=== PATIENT | female | born 1995 | race African-American/Black ===

== ENCOUNTER 2018-08-17 12:09 | Day surgery (SDC) | payer OTHER | END 2018-08-17 21:30 | disposition home or self-care (01) | LOC: JASU-SURG 21:30 → J8W 20:36 ==

== ENCOUNTER 2018-11-17 11:56 | Inpatient (IN) | payer OTHER ==
[2018-11-17 12:07] VITALS: BMI 38.0
--- NOTE | 2018-11-17 12:11 | PDOC ---
History of Present Illness - General Chief Complaint: Syncope/Near Syncope Stated Complaint: Syncope/Near Syncope Time Seen by Provider: 11/17/18 12:08 Past History - Past Medical History Allergies/Adverse Reactions: Allergies Allergy/AdvReac Type Severity Reaction Status Date / Time house dust AdvReac Intermediate Hives Verified 11/17/18 12:43 latex AdvReac Intermediate Hives Verified 11/17/18 12:43 Home Medications: Ambulatory Orders NK [No Known Home Medication] 11/17/18 Anemia: No Asthma: No Cancer: No Cardiac Disorders: No CVA: No COPD: No CHF: No Dementia: No Diabetes: No GI Disorders: No Disorders: No HTN: No Hypercholesterolemia: No Liver Disease: No Seizures: No Thyroid Disease: No - Surgical History Abdominal Surgery: No Appendectomy: No Cardiac Surgery: No Cholecystectomy: No GI Surgery: Yes (gastric sleeve) Lung Surgery: No Neurologic Surgery: No Orthopedic Surgery: No - Suicide/Smoking/Psychosocial Hx Smoking History: Never smoked Have you smoked in the past 12 months: No Information on smoking cessation initiated: No Hx Alcohol Use: No Drug/Substance Use Hx: No Substance Use Type: None Hx Substance Use Treatment: No *Physical Exam - Vital Signs Last Vital Signs Temp Pulse Resp BP Pulse Ox 98.6 F 97 H 18 119/82 100 11/17/18 12:03 11/17/18 12:03 11/17/18 12:03 11/17/18 12:03 11/17/18 12:03 ED Treatment Course - LABORATORY CBC & Chemistry Diagram: 11/17/18 12:27 11/17/18 12:27 - ADDITIONAL ORDERS Additional order review: Laboratory Results 11/17/18 11:59 POC Glucometer 65 11/17/18 11:59 POC Glucometer 65 Medical Decision Making - Medical Decision Making HPI: 23yo F with PMH of obesity with recent bariatric surgery presenting after syncopal episode. Patient states she was in shower this morning when she felt like she might pass out as she felt very lightheaded and weak. Patient was in the waiting room when she had a witnessed syncopal episode. No jerking/shaking motion, no urinary/stool incontinence, no tongue/lip biting. Patient was moved to the main ER for further evaluation. Patient admits she has had poor po intake since the surgery, only consuming about 20 oz of liquid per day for the past couple days. Patient reports nausea and vomiting which she associates with the surgery She states she very easily gets dehydrated. No fevers or chills. ROS: Constitutional: no fever, no chills HEENT: no throat pain, no dysphagia Cardiovascular: no chest pain, no palpitations Respiratory: no cough, no shortness of breath Gastrointestinal: +nausea, +vomiting Genitourinary: no dysuria, no hematuria Musculoskeletal: no myalgia, no arthralgia Skin: no rash, no itching Neurologic: no headache, +weakness PE: General: Awake, alert, and fully oriented, laying in position Head: No signs of trauma Eyes: EOMI, sclera anicteric ENT: Dry mucus membranes Neck: Normal ROM, supple Lungs: Lungs clear, Normal breath sounds Cardio: Regular rhythm, S1 and S2 present Abdomen: Soft, nontender. No guarding, no rebound, no masses. Surgical incisions are clean, dry, intact Extremities: Normal range of motion, Distal pulses present SKIN: Warm, Dry, normal turgor Neurologic: Cranial nerves II through XII grossly intact. Normal speech ED Courses/MDM: DDX including but not limited to vasovagal syncope, cardiogenic syncope, metabolic syncope, neurogenic syncope, postural syncope, , intoxication , seizure 11/17/18 12:11 CBC WBC 4.4 K/mm3 (4.0-10.0) 11/17/18 12:27 RBC 4.72 M/mm3 (3.60-5.2) 11/17/18 12:27 Hgb 14.3 GM/dL (10.7-15.3) 11/17/18 12:27 Hct 42.1 % (32.4-45.2) 11/17/18 12:27 MCV 89.3 fl (80-96) 11/17/18 12:27 MCH 30.3 pg (25.7-33.7) 11/17/18 12:27 MCHC 33.9 g/dl (32.0-36.0) 11/17/18 12:27 RDW 14.0 % (11.6-15.6) 11/17/18 12:27 Plt Count 206 K/MM3 (134-434) 11/17/18 12:27 MPV 11.3 fl (7.5-11.1) H 11/17/18 12:27 Absolute Neuts (auto) 2.0 K/mm3 (1.5-8.0) 11/17/18 12:27 Neutrophils % 45.7 % (42.8-82.8) 11/17/18 12:27 Lymphocytes % 39.4 % (8-40) 11/17/18 12:27 Monocytes % 13.1 % (3.8-10.2) H 11/17/18 12:27 Eosinophils % 0.8 % (0-4.5) 11/17/18 12:27 Basophils % 1.0 % (0-2.0) 11/17/18 12:27 Nucleated RBC % 0 % (0-0) 11/17/18 12:27 No leukocytosis CMP Sodium 137 mmol/L (136-145) 11/17/18 12:27 Potassium 4.1 mmol/L (3.5-5.1) 11/17/18 12:27 Chloride 104 mmol/L (98-107) 11/17/18 12:27 Carbon Dioxide 16 mmol/L (21-32) L 11/17/18 12:27 Anion Gap 17 MMOL/L (8-16) H 11/17/18 12:27 BUN 9.5 mg/dL (7-18) 11/17/18 12:27 Creatinine 0.8 mg/dL (0.55-1.3) 11/17/18 12:27 Est GFR (CKD-EPI)AfAm 121.29 11/17/18 12:27 Est GFR (CKD-EPI)NonAf 104.65 11/17/18 12:27 POC Glucometer 65 UNITS (80-120) 11/17/18 11:59 Random Glucose 61 mg/dL (74-106) L 11/17/18 12:27 Lactic Acid 0.9 mmol/L (0.4-2.0) 11/17/18 13:52 Calcium 9.5 mg/dL (8.5-10.1) 11/17/18 12:27 Total Bilirubin 0.5 mg/dL (0.2-1) 11/17/18 12:27 AST 22 U/L (15-37) 11/17/18 12:27 ALT 20 U/L (13-61) 11/17/18 12:27 Alkaline Phosphatase 58 U/L (45-117) 11/17/18 12:27 Troponin I < 0.02 ng/ml (0.00-0.05) 11/17/18 12:27 Total Protein 8.2 g/dl (6.4-8.2) 11/17/18 12:27 Albumin 4.1 g/dl (3.4-5.0) 11/17/18 12:27 Electrolytes unremarkable Tpn undetectable Lactate normal VBG indicating metabolic acidosis, likely due to starvation ketosis Total of 1L NS, and 1L D5-NS given so far US negative for DVT Discussed case with Dr. Nunez, infection control specialist for patient's bariatric surgeon, at [facility], We don't need to image unless she has fever or pain hydration is advised for fluid resuscitatation Sometimes 4L of fluid, banana bag will help in order to break the cycle of being able to tolerate po Any stool softener can be helpful for patient's constipation, but often the patient is consuming so little she is not moving her bowels 11/17/18 15:14 Patient feeling better after receiving fluids, however, there is concern for the metabolic derangements present on blood work. Will require admission for dehydration and poor po intake. Discussed case with Dr. Calvert who accepted patient for med/surg admission under herself 11/17/18 15:57 Another 1L D5-NS ordered *DC/Admit/Observation/Transfer Diagnosis at time of Disposition: Dehydration, Metabolic acidemia - Discharge Dispostion Condition at time of disposition: Guarded Decision to Admit order: Yes - Referrals - Patient Instructions - Post Discharge Activity
[2018-11-17] MEDS ORDERED: SODIUM CHLORIDE 1,000 ML IV STA (12:21)
[2018-11-17 12:36] LABS: EOS % 0.8 % (0-4.5); HEMATOCRIT 42.1 % (32.4-45.2); HEMOGLOBIN 14.3 GM/dL (10.7-15.3); LYMPH % 39.4 % (8-40); MCH 30.3 pg (25.7-33.7); MCHC 33.9 g/dl (32.0-36.0); MEAN CELL VOLUME 89.3 fl (80-96); MEAN PLT VOLUME 11.3 fl (7.5-11.1); MONO % 13.1 % (3.8-10.2); NEUT % 45.7 % (42.8-82.8); PLATELET COUNT 206 K/MM3 (134-434); RBC 4.72 M/mm3 (3.60-5.2); WHITE BLOOD COUNT 4.4 K/mm3 (4.0-10.0)
[2018-11-17 12:49] LABS: INR 1.39 (0.83-1.09); PROTHROMBIN TIME (PATIENT) 16.5 SEC (9.7-13.0)
[2018-11-17] MEDS ORDERED: ONDANSETRON 4 MG/2 ML VIAL IVPUSH ONE (13:08)
[2018-11-17 13:09] LABS: HYALINE CASTS 40 /lpf (0-8); PH,URINE 5.5 (5.0-8.0); URINE APPEARANCE CLOUDY; URINE BILIRUBIN NEGATIVE (NEGATIVE); URINE COLOR YELLOW; URINE GLUCOSE (UA) NEGATIVE (NEGATIVE); URINE KETONE 4+ (NEGATIVE); URINE LEUK ESTERASE NEGATIVE (NEGATIVE); URINE NITRITE NEGATIVE (NEGATIVE); URINE PROTEIN 1+ (NEGATIVE); URINE RBC 5 /hpf (0-4); URINE WBC 5 /hpf (0-5)
[2018-11-17 13:24] LABS: ALBUMIN 4.1 g/dl (3.4-5.0); ALK PHOS 58 U/L (45-117); ANION GAP 17 MMOL/L (8-16); BILIRUBIN,TOTAL 0.5 mg/dL (0.2-1); BLOOD UREA NITROGEN 9.5 mg/dL (7-18); CALCIUM 9.5 mg/dL (8.5-10.1); CHLORIDE 104 mmol/L (98-107); CO2 16 mmol/L (21-32); CREATININE 0.8 mg/dL (0.55-1.3); GLUCOSE,RANDOM 61 mg/dL (74-106); POTASSIUM 4.1 mmol/L (3.5-5.1); SGOT/AST 22 U/L (15-37); SGPT/ALT 20 U/L (13-61); SODIUM 137 mmol/L (136-145); TOT PROT 8.2 g/dl (6.4-8.2)
[2018-11-17] MEDS ORDERED: ONDANSETRON 4 MG/2 ML VIAL ONE (13:25)
[2018-11-17] MEDS ORDERED: DEXTROSE 5%-NORMAL SALINE 1,000 ML IV ONE ×2 (13:27→17:00)
[2018-11-17 13:39] LABS: ACETONE SERUM NEGATIVE (NEGATIVE)
--- NOTE | 2018-11-17 13:56 | PDOC ---
Documentation entered by Fadia Costa SCRIBE, acting as scribe for Geovanni Vann MD. Geovanni Vann MD: This documentation has been prepared by the scribe, Fadia Costa SCRIBE, under my direction and personally reviewed by me in its entirety. I confirm that the documentation accurately reflects all work, treatment, procedures, and medical decision making performed by me. Attending Attestation - Resident Resident Name: RosemaryAnne - ED Attending Attestation I have performed the following: I have examined & evaluated the patient, The case was reviewed & discussed with the resident, I agree w/resident's findings & plan, Exceptions are as noted - HPI HPI: 11/17/18 13:26 The patient is a 23-year-old female with a past medical history significant for obesity s/p bariatric surgery (November 09) presents to the emergency department s /p a syncopal episode, nausea and decreased PO intake. The patient reports since the surgery shes been having decreased PO intake to 20 ounces of fluids/ day, nausea, and vomiting. The patient reports earlier today she had a syncopal episode. The patient reports talking to the bariatric team, who referred the patient to follow up at the ER. The patient was waiting at the ER waiting room, when she had another syncopal episode. The patient reports associated symptoms of burning chest pain, no bowel movement since the surgery, and 2 days of unilateral right posterior knee pain. The patient reports having a syncopal episode mid-October. Denies fever, chills, cough, hemoptysis, shortness of breath, abdominal pain. LMP: October 31. Allergies: house dust, latex. NKDA Surgeon: Dr. Colin, [facility] - Physicial Exam PE: 11/17/18 13:52 GENERAL: The patient is awake, alert, and fully oriented, Nontoxic - in no acute distress. HEAD: Normocephalic, atraumatic. EYES: extraocular movements intact, sclera anicteric, conjunctiva clear. ENT: Normal voice, dry mucous membranes. NECK: Normal range of motion, supple LUNGS: Breath sounds equal, clear to auscultation bilaterally. No wheezes, no rhonchi, no rales. HEART: slightly tachcyardic, Regular rhythm, normal S1 and S2 without murmur, rub or gallop. ABDOMEN: Soft, nontender, No guarding, no rebound. No CVA tenderness EXTREMITIES: Normal range of motion, no edema. No edema, neg homans sign NEUROLOGICAL: No facial assymetry, Normal speech, moving all 4 extremities spontanoeusly and symmetricaly PSYCH: Normal mood, normal affect. SKIN: Warm, Dry, normal turgor, - Medical Decision Making 11/17/18 12:57 23y F hx of obesity sp bariatric surgery 1 week ago present with poor po intake and sycnope episode, and pt syncopized in the ED during registration. pt has had poor PO intake ~20oz of fluid/.day due to nausea/vomiting. Endorses chest burning discomfort since her procecure (that she attributes to being intubated) . denies any fever/chills, abd pain, hemoptysis, sob, vance. pt had L sided knee pain that was atraumatic ddx - suspect dehydration/metabolic derangement. consider PE, however no respiratory complaints, pt with L leg pain - will obtain US to r/o dvt will hydrate ekg to screen fora rtymia labs to screen for anmeia,metabolic derangeent, chuy, hcg 11/17/18 13:55 pts labs reviewed noted for metabolic acidosis, +ketones will ck serum acetones and lactic acid to nima the acidosis - but i suspect this is due to starvation ketosis as she hsa been only tolerating limited PO intake (primary water) with very little caloric nutrion 11/17/18 15:[address] Colin Case discussed with Dr. Maricarmen Nunez 11/17/18 15:47 Patient's PCP is Dr. Dania Hunter, Dr. Calvert admits Dr. Hunter's patients Call placed to Dr. Calvert for admission, waiting for a call back.
[2018-11-17 14:37] LABS: VENOUS PC02 27.7 mmHg (41-51); VENOUS PH 7.28 (7.31-7.41); VENOUS PO2 41.7 mmHg (30-40)
[2018-11-17] MEDS ORDERED: ACETAMINOPHEN 325 MG TABLET (FP) PO PRN (20:09)
[2018-11-17] MEDS: HEPARIN NA (PORCINE) 5,000 UNITS/ML 1ML VIAL SQ SCH (21:02)
--- NOTE | 2018-11-17 21:48 | HP ---
Admitting History and Physical - Admission History of Present Illness: Pt is a 23-year-old female with a past medical history significant for migraine GORDON's, morbid obesity s/p bariatric surgery (November 09) presents to the emergency department s/p a syncopal episode, nausea and decreased PO intake. The patient reports since the surgery shes been having decreased PO intake to 20 ounces of fluids/day, nausea, and vomiting. The patient reports earlier today she had a syncopal episode. The patient reports talking to the bariatric team, who referred the patient to follow up at the ER. The patient was waiting at the ER waiting room, when she had another syncopal episode. The patient reports associated symptoms of burning chest pain, no bowel movement since the surgery, and 2 days of unilateral right posterior knee pain. The patient reports having a syncopal episode mid-October. Denies fever, chills, cough, hemoptysis, shortness of breath, abdominal pain. - Past Medical History [employer]: Yes: Migraine, Syncope ...LMP: 09/07/18 - Past Surgical History Past Surgical History: Yes: Bariatric Surgery - Smoking History Smoking history: Never smoked Have you smoked in the past 12 months: No - Alcohol/Substance Use Hx Alcohol Use: No Home Medications - Allergies Allergies/Adverse Reactions: Allergies Allergy/AdvReac Type Severity Reaction Status Date / Time house dust AdvReac Intermediate Hives Verified 11/17/18 12:43 latex AdvReac Intermediate Hives Verified 11/17/18 12:43 - Home Medications Home Medications: Ambulatory Orders levoFLOXacin [Levaquin -] 500 mg PO DAILY #5 tablet 11/19/18 Family Disease History - Family Disease History Family History: Unremarkable Review of Systems - Review of Systems Constitutional: reports: Loss of Appetite, Weakness Eyes: reports: No Symptoms HENT: reports: No Symptoms Neck: reports: No Symptoms Cardiovascular: reports: No Symptoms Respiratory: reports: No Symptoms Gastrointestinal: reports: No Symptoms Genitourinary: reports: No Symptoms Physical Examination Vital Signs: Vital Signs Temperature 97.5 F L 11/17/18 17:58 Pulse Rate 76 11/17/18 17:58 Respiratory Rate 18 11/17/18 17:58 Blood Pressure 132/65 11/17/18 17:58 O2 Sat by Pulse Oximetry (%) 98 11/17/18 17:58 Constitutional: Yes: Well Nourished, Obese Eyes: Yes: WNL HENT: Yes: WNL Neck: Yes: WNL, Supple Cardiovascular: Yes: WNL, Regular Rate and Rhythm Respiratory: Yes: WNL, Regular, CTA Bilaterally Gastrointestinal: Yes: WNL, Normal Bowel Sounds, Soft, Abdomen, Obese Musculoskeletal: Yes: WNL Extremities: Yes: WNL Edema: No Neurological: Yes: WNL, Alert, Oriented ...Motor Strength: WNL Labs: CBC, BMP 11/17/18 12:27 11/17/18 12:27 Problem List - Problems (1) Syncope Assessment/Plan: ?Due to vasovagal episode due to dehydration/decreased PO intake Monitor electrolytes Cont IVF Cardio/neuro consults Check ct scan head Code(s): R55 - SYNCOPE AND COLLAPSE (2) Migraine headache Code(s): G43.909 - MIGRAINE, UNSP, NOT INTRACTABLE, WITHOUT STATUS MIGRAINOSUS (3) Morbid obesity Code(s): E66.01 - MORBID (SEVERE) OBESITY DUE TO EXCESS CALORIES (4) Elevated CPK Assessment/Plan: Due to ?rhabdo Cont IVF Cont to trend CPK Code(s): R74.8 - ABNORMAL LEVELS OF OTHER SERUM ENZYMES
[2018-11-17] MEDS: DEXTROSE 5%-0.45% SALINE 1,000 ML IV SCH (23:09)
[2018-11-18 07:20] LABS: BASO % 0.6 % (0-2.0); EOS % 2.5 % (0-4.5); HEMATOCRIT 34.9 % (32.4-45.2); HEMOGLOBIN 12.2 GM/dL (10.7-15.3); LYMPH % 44.6 % (8-40); MCH 30.5 pg (25.7-33.7); MCHC 34.8 g/dl (32.0-36.0); MEAN CELL VOLUME 87.7 fl (80-96); MEAN PLT VOLUME 11.8 fl (7.5-11.1); MONO % 17.1 % (3.8-10.2); NEUT % 35.2 % (42.8-82.8); PLATELET COUNT 172 K/MM3 (134-434); RBC 3.98 M/mm3 (3.60-5.2); RDW 13.7 % (11.6-15.6)
[2018-11-18 07:57] LABS: ALBUMIN 3.2 g/dl (3.4-5.0); BLOOD UREA NITROGEN 6.3 mg/dL (7-18); CALCIUM 8.3 mg/dL (8.5-10.1); CREATININE 0.6 mg/dL (0.55-1.3); POTASSIUM 3.4 mmol/L (3.5-5.1); TOT PROT 6.2 g/dl (6.4-8.2)
--- NOTE | 2018-11-18 11:13 | CONSULT ---
Consult - text type - Consultation Consultation Note: Cardiology (Dr. Latif covering Dr. Almanza) Reason for Consult: Syncope 23 yo AA female H/o Obesity s/p bariatric surgery on November 09 Over past 2-3 days had not been feeling well with dizziness and overall general weakness Had not been eating or drinking as directed. Did take about 22 Oz water only per day. Came to the ED with these complaints and felt dizzy and "passed out" Thinks she was out for a few minutes. Prodrome of awareness that she was going to pass out, weak in her legs No chest pain, palpitations Was aware of her surroundings upon arousal Labs in ED noted for Gluc 61 No prior h/o DM, HTN, HPL or CAD Had full cardiac clearance prior to Bariatric surgery PMHx, Soc Hx, Allergies reviewed PE: VS BP 102/65mmHg, P 68/min 100% RA No distress Normal carotid upstroke No bruits Regular rate, no murmurs Lungs are clear bilaterally, no edema EC11/17/2018 at 11:51 sinus tach at 101 without prior infarct or ischemic changes Trop neg x 2 Hgb 14.3 K 3.4 IMP: Syncope in the setting of volume depletion Unlikley cardiac in etiology Would encourage PO intake (within the guidelines of her recent bariatric surgery limitations) and IV hydration Follow BP
[2018-11-18] MEDS: HEPARIN NA (PORCINE) 5,000 UNITS/ML 1ML VIAL SQ SCH ×2 (11:37→21:57)
[2018-11-18] MEDS ORDERED: POTASSIUM CHLORIDE TABS 20 MEQ TABLET.ER (FP) PO ONE (12:45)
[2018-11-18] MEDS ORDERED: DEXTROSE 5%-0.45% SALINE 1,000 ML IV SCH (12:45)
[2018-11-18] MEDS: DEXTROSE 5%-0.45% SALINE 1,000 ML IV SCH (16:16)
[2018-11-18] MEDS ORDERED: DOCUSATE SODIUM 100 MG CAPSULE (FP) PO SCH (22:00)
--- NOTE | 2018-11-18 23:10 | PN ---
Progress Note, Physician History of Present Illness: Pt feeling dizzy - Current Medication List Current Medications: Active Medications Acetaminophen (Tylenol -) 650 mg PO Q4H PRN PRN Reason: PAIN Last Admin: 11/17/18 20:40 Dose: 650 mg Docusate Sodium (Colace -) 200 mg PO TID [facility] Last Admin: 11/18/18 21:57 Dose: 200 mg Heparin Sodium (Porcine) (Heparin -) 5,000 unit SQ BID [facility] Last Admin: 11/18/18 21:57 Dose: 5,000 unit Dextrose/Sodium Chloride (D5-1/2ns -) 1,000 mls @ 75 mls/hr IV ASDIR [facility] Last Admin: 11/18/18 16:16 Dose: 75 mls/hr Dextrose/Sodium Chloride (D5-1/2ns -) 1,000 mls @ 100 mls/hr IV ASDIR [facility] Last Admin: 11/18/18 13:11 Dose: 100 mls/hr - Objective Vital Signs: Vital Signs Temperature 98.5 F 11/18/18 14:10 Pulse Rate 96 H 11/18/18 14:10 Respiratory Rate 20 11/18/18 14:10 Blood Pressure 91/58 L 11/18/18 14:10 O2 Sat by Pulse Oximetry (%) 100 11/18/18 09:00 Constitutional: Yes: Well Nourished, Obese HENT: Yes: WNL Neck: Yes: WNL, Supple Cardiovascular: Yes: WNL, Regular Rate and Rhythm Respiratory: Yes: WNL, Regular, CTA Bilaterally Gastrointestinal: Yes: WNL, Normal Bowel Sounds, Soft Labs: CBC, BMP 11/18/18 05:25 11/18/18 05:25 INR, PTT INR 1.39 (0.83-1.09) H 11/17/18 12:27 Problem List - Problems (1) Syncope Assessment/Plan: ?Due to vasovagal episode due to dehydration/decreased PO intake Monitor electrolytes Cont IVF CT scan head was normal Code(s): R55 - SYNCOPE AND COLLAPSE (2) Elevated CPK Assessment/Plan: Due to ?rhabdo Cont IVF Cont to trend CPK Code(s): R74.8 - ABNORMAL LEVELS OF OTHER SERUM ENZYMES (3) Migraine headache Code(s): G43.909 - MIGRAINE, UNSP, NOT INTRACTABLE, WITHOUT STATUS MIGRAINOSUS (4) Morbid obesity Code(s): E66.01 - MORBID (SEVERE) OBESITY DUE TO EXCESS CALORIES
[2018-11-18] MEDS: SULFAMETHOXAZOLE/TRIMETHOPRIM 800MG/160MG D.S. TABLET PO SCH (23:55)
[2018-11-19 07:09] VITALS: TEMP 98.2
--- NOTE | 2018-11-19 09:13 | EKG ---
Test Reason : Blood Pressure : / mmHG Vent. Rate : 101 BPM Atrial Rate : 101 BPM P-R Int : 134 ms QRS Dur : 080 ms QT Int : 324 ms P-R-T Axes : 035 062 037 degrees QTc Int : 420 ms POOR DATA QUALITY, INTERPRETATION MAY BE ADVERSELY AFFECTED SINUS TACHYCARDIA OTHERWISE NORMAL ECG NO PREVIOUS ECGS AVAILABLE Confirmed by JANE CUMMINGS MD ([id number]) on 11/19/2018 9:12:29 AM Referred By: Confirmed By:JANE CUMMINGS MD
[2018-11-19 09:55] LABS: BASO % 0.6 % (0-2.0); EOS % 1.7 % (0-4.5); HEMATOCRIT 39.4 % (32.4-45.2); HEMOGLOBIN 13.5 GM/dL (10.7-15.3); LYMPH % 47.5 % (8-40); MCH 30.2 pg (25.7-33.7); MCHC 34.2 g/dl (32.0-36.0); MEAN CELL VOLUME 88.2 fl (80-96); MEAN PLT VOLUME 10.9 fl (7.5-11.1); MONO % 14.4 % (3.8-10.2); NEUT % 35.8 % (42.8-82.8); PLATELET COUNT 196 K/MM3 (134-434); RBC 4.46 M/mm3 (3.60-5.2); RDW 13.8 % (11.6-15.6); WHITE BLOOD COUNT 3.8 K/mm3 (4.0-10.0)
[2018-11-19] MEDS: HEPARIN NA (PORCINE) 5,000 UNITS/ML 1ML VIAL SQ SCH (10:06)
[2018-11-19] MEDS: SULFAMETHOXAZOLE/TRIMETHOPRIM 800MG/160MG D.S. TABLET PO SCH (10:06)
[2018-11-19 10:24] LABS: ALBUMIN 3.5 g/dl (3.4-5.0); BILIRUBIN,TOTAL 0.3 mg/dL (0.2-1); BLOOD UREA NITROGEN 4.2 mg/dL (7-18); CREATININE 0.7 mg/dL (0.55-1.3); POTASSIUM 3.5 mmol/L (3.5-5.1)
[2018-11-19 14:59] VITALS: BP 138/91; PULSE 87
== END 2018-11-19 16:00 | disposition home or self-care (01) | DRG 312 ==
LOC: SUPCPDRO 11:56 → JER 11:56 → JERBED 15:58 → J7W 16:58
PROVIDERS: ADMIT Internal Medicine; ATTEND Internal Medicine
DX: R55 Syncope and collapse (principal); E87.2 Acidosis; E86.0 Dehydration; G43.809 Other migraine, not intractable, without status migrainosus; R74.8 Abnormal levels of other serum enzymes; R00.0 Tachycardia, unspecified; E66.9 Obesity, unspecified; Z68.38 Body mass index [BMI] 38.0-38.9, adult; Z98.84 Bariatric surgery status
CPT/HCPCS: 36415; 70450-TC; 80053; 81003; 82009; 82550; 82553; 82803; 82962; 83605; 84484; 84703; 85025; 85610; 87086; 87186; 93005; 93010; 93971-TC; 99285-25; J1644; J7030

== ENCOUNTER 2019-01-05 12:06 | Emergency (ER) | payer OTHER ==
--- NOTE | 2019-01-05 12:29 | PDOC ---
Rapid Medical Evaluation Medical Evaluation: Allergies Allergy/AdvReac Type Severity Reaction Status Date / Time house dust AdvReac Intermediate Hives Verified 11/17/18 12:43 latex AdvReac Intermediate Hives Verified 11/17/18 12:43 I have performed a brief in-person evaluation of this patient. The patient presents with a chief complaint of: hx migraine GORDON's, morbid obesity s/p bariatric surgery (November 09) sent by PCP due to RUQ pain for possible gallstones; NBNB emesis x 2 weeks; sxs going on since mid November Pertinent physical exam findings: In NAD, +RUQ tenderness, no CVA tenderness I have ordered the following: Labs, IVF, zofran, abd US The patient will proceed to the ED for further evaluation. 01/05/19 12:26
[2019-01-05] MEDS ORDERED: SODIUM CHLORIDE 1,000 ML IV STA (12:30)
[2019-01-05] MEDS ORDERED: ONDANSETRON 4 MG/2 ML VIAL IVPUSH ONE (12:30)
[2019-01-05 12:32] VITALS: BMI 32.4
[2019-01-05] MEDS ORDERED: KETOROLAC TROMETHAMINE 30 MG/1 ML VIAL IVPUSH ONE (13:38)
--- NOTE | 2019-01-05 13:38 | PDOC ---
History of Present Illness - General Chief Complaint: Pain Stated Complaint: SENT BY PCP Time Seen by Provider: 01/05/19 12:26 History Source: Patient - History of Present Illness Timing/Duration: reports: getting worse Quality: reports: severe Abdominal Pain Onset Location: reports: RUQ Past History - Past Medical History Allergies/Adverse Reactions: Allergies Allergy/AdvReac Type Severity Reaction Status Date / Time house dust AdvReac Intermediate Hives Verified 01/05/19 12:27 latex AdvReac Intermediate Hives Verified 01/05/19 12:27 Home Medications: Ambulatory Orders Acetaminophen 1,000 mg PO Q6H #30 tablet 01/05/19 Ondansetron HCl [Zofran] 4 mg PO Q6H #30 tablet 01/05/19 Anemia: No Asthma: No Cancer: No Cardiac Disorders: No CVA: No COPD: No CHF: No Dementia: No Diabetes: No GI Disorders: No Disorders: No HTN: No Hypercholesterolemia: No Liver Disease: No Seizures: No Thyroid Disease: No - Surgical History Abdominal Surgery: No Appendectomy: No Cardiac Surgery: No Cholecystectomy: No GI Surgery: Yes (gastric sleeve) Lung Surgery: No Neurologic Surgery: No Orthopedic Surgery: No - Immunization History Immunization Up to Date: Yes - Suicide/Smoking/Psychosocial Hx Smoking History: Never smoked Have you smoked in the past 12 months: No Information on smoking cessation initiated: No Hx Alcohol Use: No Drug/Substance Use Hx: No Substance Use Type: None Hx Substance Use Treatment: No Review of Systems - Review of Systems Constitutional: No: Chills, Fever Respiratory: No: Shortness of Breath Cardiac (ROS): No: Chest Pain ABD/GI: Yes: Constipated, Nausea, Vomiting, Abdominal cramping. No: Blood Streaked Bowels, Diarrhea : No: Dysuria *Physical Exam - Vital Signs Last Vital Signs Temp Pulse Resp BP Pulse Ox 98.2 F 104 H 16 121/79 99 01/05/19 12:28 01/05/19 12:28 01/05/19 12:28 01/05/19 12:28 01/05/19 12:28 - Physical Exam General Appearance: Yes: Appropriately Dressed, Moderate Distress HEENT: positive: Normal Voice Neck: positive: Supple Respiratory/Chest: negative: Respiratory Distress Gastrointestinal/Abdominal: positive: Normal Bowel Sounds, Tender (sig ttp to RUQ), Soft. negative: Distended, Guarding, Rebound Musculoskeletal: negative: CVA Tenderness Integumentary: positive: Dry, Warm Neurologic: positive: Fully Oriented, Alert, Normal Mood/Affect ED Treatment Course - LABORATORY CBC & Chemistry Diagram: 01/05/19 14:15 01/05/19 14:15 Medical Decision Making - Medical Decision Making 01/05/19 13:34 23 yo F, s/p gastric sleeve 11/09/18 in [place], w/ intermittent n/v since, not able to hector po now including antiemetics given to her by her surgeon. States she progressed to solid food ~1 month ago and since then has been having RUQ pain after po intake. Of note pt was admitted to [facility] 12/04 for syncope deemed to be 2/2 dehydration per records. Pt was seen by her surgeon ~2 weeks ago and was told she needed an endoscopy and to be "checked for gallstones" but states no one contacted her to arrange procedures. Reports constipation as well. No BRBPR, melena, f/c see exam RUQ pain w/ n/v s/p bariatric surgery 11/09/18 at OSH S/p admission 12/04 for syncope 2/2 dehydration/volume depletion S/p surgery f/u 2 weeks ago and told need endoscopy but no procedure yet Unable to hector po and meds now Tachy to 104 but francisca very uncomfortable w/ mod ttp to RUQ -zofran -pain control -IVF -labs -US -?CT 01/05/19 14:07 Pt refusing IVF. States IV fluids make her gain weight and does not want it. I explained to pt that given her complaints and clinical evaluation, she m/l is dehydrated and need IVF hydration to prevent complications, i.e syncope, etc. Pt verbalized understanding and continue to refuse IVF. Appears to have capacity to make decisions 01/05/19 16:50 Labs only remarkably for Ket of 4+ on UA, m/l 2/2 dehydration. Pt informed of results but continue to decline IVF. States she feels sig better w/ IV meds and was able to hector po here. Requesting discharge. Rest of labs and US negative. Will dc w/ supportive tx. Encourage to f/u with surgeon at [facility] on Tuesday. Strict return precautions given *DC/Admit/Observation/Transfer Diagnosis at time of Disposition: RUQ pain Nausea and vomiting Qualifiers: Vomiting type: unspecified Vomiting Intractability: unspecified Qualified Code( s): R11.2 - Nausea with vomiting, unspecified - Discharge Dispostion Disposition: HOME Condition at time of disposition: Improved - Prescriptions Prescriptions: Acetaminophen 1,000 mg PO Q6H #30 tablet Ondansetron HCl [Zofran] 4 mg PO Q6H #30 tablet - Referrals - Patient Instructions Additional Instructions: The cause of your symptoms are unclear but your labs revealed that you are dehydrated You have declined IV fluids here You need to drink plenty of fluids at home to prevent more complications Take medications as directed and return to ED for worsening of symptoms Otherwise, please follow up with your surgeon Tuesday - Post Discharge Activity
[2019-01-05] MEDS ORDERED: ONDANSETRON 4 MG/2 ML VIAL ONE (13:54)
[2019-01-05] MEDS ORDERED: KETOROLAC TROMETHAMINE 30 MG/1 ML VIAL ONE (13:54)
[2019-01-05] MEDS ORDERED: ACETAMINOPHEN 325 MG TABLET (FP) PO ONE (14:06)
[2019-01-05] MEDS ORDERED: ONDANSETRON 4 MG TABLET PO ONE (14:06)
[2019-01-05 14:30] LABS: EPI CELLS 8.7 /HPF (0-5/HPF); HYALINE CASTS 91 /lpf (0-8); URINE APPEARANCE CLOUDY; URINE BACTERIA 46.1 /hpf (NEGATIVE); URINE BILIRUBIN NEGATIVE (NEGATIVE); URINE COLOR YELLOW; URINE GLUCOSE (UA) NEGATIVE (NEGATIVE); URINE KETONE 4+ (NEGATIVE); URINE LEUK ESTERASE NEGATIVE (NEGATIVE); URINE NITRITE NEGATIVE (NEGATIVE); URINE PROTEIN 2+ (NEGATIVE); URINE RBC 1 /hpf (0-4); URINE WBC 6 /hpf (0-5)
[2019-01-05 14:47] LABS: BASO % 0.7 % (0-2.0); EOS % 0.7 % (0-4.5); HEMATOCRIT 44.5 % (32.4-45.2); HEMOGLOBIN 14.9 GM/dL (10.7-15.3); LYMPH % 38.4 % (8-40); MCH 30.1 pg (25.7-33.7); MCHC 33.6 g/dl (32.0-36.0); MEAN CELL VOLUME 89.7 fl (80-96); MEAN PLT VOLUME 11.7 fl (7.5-11.1); MONO % 15.2 % (3.8-10.2); PLATELET COUNT 200 K/MM3 (134-434); RBC 4.96 M/mm3 (3.60-5.2); RDW 16.7 % (11.6-15.6)
[2019-01-05 14:53] LABS: BILIRUBIN,TOTAL 0.6 mg/dL (0.2-1); BLOOD UREA NITROGEN 3.6 mg/dL (7-18); CALCIUM 9.7 mg/dL (8.5-10.1); CREATININE 0.7 mg/dL (0.55-1.3); POTASSIUM 3.5 mmol/L (3.5-5.1); TOT PROT 7.8 g/dl (6.4-8.2)
[2019-01-05 17:43] VITALS: BP 120/72; PULSE 76; TEMP 98.1
== END 2019-01-05 17:53 | disposition home or self-care (01) ==
LOC: JER 12:06
PROC: 3E033GC Introduction of Other Therapeutic Substance into Peripheral Vein, Percutaneous Approach (ICD-10-PCS; principal; 2019-01-05)
PROC: 3E0333Z Introduction of Anti-inflammatory into Peripheral Vein, Percutaneous Approach (ICD-10-PCS; 2019-01-05)
DX: E86.0 Dehydration (principal); R11.0 Nausea; R11.2 Nausea with vomiting, unspecified; E66.01 Morbid (severe) obesity due to excess calories; Z68.32 Body mass index [BMI] 32.0-32.9, adult; Z98.84 Bariatric surgery status
CPT/HCPCS: 36415; 76705-TC; 80053; 81003; 83690; 84703; 85025; 87086; 99283-25

== ENCOUNTER 2020-07-25 19:15 | Inpatient (IN) | payer OTHER ==
[2020-07-25 19:21] VITALS: BMI 25.7
[2020-07-25] MEDS ORDERED: LACTATED RINGERS SOLUTION 1000 ML INFUS.BAG IV ONE (21:14)
[2020-07-25] MEDS ORDERED: ONDANSETRON 4 MG TABLET PO ONE (22:01)
[2020-07-25 22:13] LABS: BASO % 0.5 % (0-2.0); EOS % 1.2 % (0-4.5); EPI CELLS >36 /uL (0-25.1); HEMATOCRIT 25.9 % (32.4-45.2); HEMOGLOBIN 7.9 GM/dL (10.7-15.3); HYALINE CASTS 3 /uL (0-3.1); LYMPH % 58.6 % (8-40); MCH 21.3 pg (25.7-33.7); MCHC 30.4 g/dl (32.0-36.0); MEAN CELL VOLUME 69.9 fl (80-96); MEAN PLT VOLUME 9.2 fl (7.5-11.1); MONO % 10.6 % (3.8-10.2); NEUT % 29.1 % (42.8-82.8); PH,URINE 5.5 (5.0-8.0); URINE APPEARANCE CLOUDY; URINE BACTERIA 1248 /uL (0-1359); URINE BILIRUBIN NEGATIVE (NEGATIVE); URINE COLOR YELLOW; URINE GLUCOSE (UA) NEGATIVE (NEGATIVE); URINE KETONE 1+ (NEGATIVE); URINE LEUK ESTERASE NEGATIVE (NEGATIVE); URINE NITRITE NEGATIVE (NEGATIVE); URINE PROTEIN 2+ (NEGATIVE); URINE RBC 763 /uL (0-23.9); WHITE BLOOD COUNT 4.6 K/mm3 (4.0-10.0)
[2020-07-25 22:15] LABS: PLATELET COUNT 327 K/MM3 (134-434)
[2020-07-25] MEDS ORDERED: ONDANSETRON *ODT* 4 MG TABLET ONE (22:15)
[2020-07-25 22:17] LABS: URINE WBC 88.5 /uL (0-25.8)
[2020-07-25 22:31] LABS: CALCIUM 8.9 mg/dL (8.5-10.1)
[2020-07-25 22:32] LABS: BLOOD UREA NITROGEN 13.9 mg/dL (7-18)
[2020-07-25 22:36] LABS: CREATININE 0.6 mg/dL (0.55-1.3)
[2020-07-25 22:37] LABS: BILIRUBIN,TOTAL 0.4 mg/dL (0.2-1); TOT PROT 7.8 g/dl (6.4-8.2)
[2020-07-25 23:02] LABS: ANISOCYTOSIS 3+; MACROCYTOSIS 0; OVALOCYTE 1+; PLATELET ESTIMATE NORMAL; TARGET CELLS 2+
[2020-07-25] MEDS ORDERED: KETOROLAC TROMETHAMINE 30 MG/1 ML VIAL IM ONE (23:04)
[2020-07-26 00:32] LABS: BASO % 0.3 % (0-2.0); EOS % 1.6 % (0-4.5); HEMATOCRIT 27.5 % (32.4-45.2); HEMOGLOBIN 8.4 GM/dL (10.7-15.3); LYMPH % 56.1 % (8-40); MCH 21.3 pg (25.7-33.7); MCHC 30.4 g/dl (32.0-36.0); MEAN CELL VOLUME 69.9 fl (80-96); MEAN PLT VOLUME 9.2 fl (7.5-11.1); MONO % 8.5 % (3.8-10.2); NEUT % 33.5 % (42.8-82.8); PLATELET COUNT 354 K/MM3 (134-434); RBC 3.94 M/mm3 (3.60-5.2)
[2020-07-26 00:45] LABS: INR 1.03 (0.83-1.09); PROTHROMBIN TIME (PATIENT) 12.5 SEC (9.7-13.0)
[2020-07-26] MEDS ORDERED: DEXTROSE 5%-0.45% SALINE 1,000 ML IV SCH (09:30)
[2020-07-26 17:03] VITALS: BP 104/65; PULSE 79; TEMP 98.4
== END 2020-07-26 18:56 | disposition home or self-care (01) | DRG 812 ==
LOC: JER 19:15 → JERBED 07-26 02:07
PROVIDERS: ADMIT Internal Medicine; ATTEND Internal Medicine
DX: D64.9 Anemia, unspecified (principal); E55.9 Vitamin D deficiency, unspecified; Z87.440 Personal history of urinary (tract) infections
CPT/HCPCS: 36415; 74176-TC; 80053; 81003; 82550; 82553; 83690; 84484; 84703; 85025; 85610; 86850; 86900; 86901; 87086; 87186; 93005; 93010; 99285-25; C9803; U0003; U0005

== ENCOUNTER 2020-09-05 14:37 | Day surgery (SDC) | payer OTHER ==
[2020-09-05] MEDS ORDERED: FERRIC CARBOXYMALTOSE 750 MG in SODIUM CHLORIDE 250 ML IVPB ONE (15:30)
[2020-09-05 15:40] VITALS: TEMP 98.6
[2020-09-05 16:59] VITALS: BP 117/60; PULSE 74
== END 2020-09-05 17:53 | disposition home or self-care (01) ==
LOC: FINFUSION 14:37 → FM/S 14:41 → EDSTATUS 14:46 → FINFUSION 17:53 → FM/S 17:53
PROVIDERS: ATTEND Internal Medicine
PROC: 3E033GC Introduction of Other Therapeutic Substance into Peripheral Vein, Percutaneous Approach (ICD-10-PCS; principal; 2020-09-05)
DX: D50.9 Iron deficiency anemia, unspecified (principal)
CPT/HCPCS: 84703; 96365; J1439

== ENCOUNTER 2020-09-19 09:25 | Day surgery (SDC) | payer OTHER ==
[~2020-09-19 09:25] MED LIST: FERRIC CARBOXYMALTOSE 750 MG in SODIUM CHLORIDE 250 ML IVPB ONE
[2020-09-19] MEDS ORDERED: FERRIC CARBOXYMALTOSE 750 MG in SODIUM CHLORIDE 250 ML IVPB ONE (10:30)
[2020-09-19 11:21] VITALS: BP 102/52; PULSE 86; TEMP 98.4
== END 2020-09-19 13:43 | disposition home or self-care (01) ==
LOC: FINFUSION 09:25 → FM/S 09:27 → FINFUSION 13:43
PROVIDERS: ATTEND Internal Medicine
PROC: 3E033GC Introduction of Other Therapeutic Substance into Peripheral Vein, Percutaneous Approach (ICD-10-PCS; principal; 2020-09-19)
DX: D50.9 Iron deficiency anemia, unspecified (principal)
CPT/HCPCS: 81025; 96365; J1439

== ENCOUNTER 2023-08-28 17:59 | Emergency (ER) | payer BC, OTHER ==
[2023-08-28 18:05] VITALS: BP 128/69; PULSE 108; RESP 18; TEMP 98.6; BMI 26.9
[2023-08-28] MEDS ORDERED: ACETAMINOPHEN 500 MG TABLET (FP) ONE (18:40)
[2023-08-28] MEDS: ACETAMINOPHEN 500 MG TABLET (FP) PO ONE (18:41)
== END 2023-08-28 19:29 | disposition home or self-care (01) ==
LOC: JERFT 17:59
DX: S93.402A Sprain of unspecified ligament of left ankle, initial encounter (principal); X50.1XXA Overexertion from prolonged static or awkward postures, initial encounter
CPT/HCPCS: 73610-TC-LT-FY; 73630-TC-LT; 99283-25